=== PATIENT | male | born 1940 | race Caucasian/White ===

== ENCOUNTER 2017-02-25 09:24 | Inpatient (IN) ==
[2017-02-25] MEDS ORDERED: ONDANSETRON 4 MG/2 ML VIAL IV STA (09:42)
[2017-02-25] MEDS ORDERED: MORPHINE 2 MG/1 ML SYRINGE IV STA (09:42)
[2017-02-25] MEDS ORDERED: ASPIRIN 325 MG TABLET PO STA (09:42)
[2017-02-25] MEDS ORDERED: ONDANSETRON 4 MG/2 ML VIAL ONE (09:52)
[2017-02-25] MEDS ORDERED: ASPIRIN 325 MG TABLET ONE (09:52)
[2017-02-25] MEDS ORDERED: MORPHINE 2 MG/1 ML SYRINGE ONE (09:52)
[2017-02-25] MEDS: NITROGLYCERIN SL 0.4 MG TABLET SL PRN ×2 (10:07→18:35)
[2017-02-25 10:15] LABS: Basophils % 0.2 % (0.0-0.8); Eosinophils # 0.1 10*3/uL (0.0-0.87); Eosinophils % 1.2 % (0.00-10.9); Hematocrit 41.4 VOL% (42.0-52.0); Hemoglobin 14.5 GM/DL (14.0-18.0); Immature Granulocytes % 0.2 %; Immature Granulocytes Absolute 0.02 #; Lymphocytes # 2.7 10*3/uL (1.4-4.0); Lymphocytes % 25.1 % (21.2-54.2); Mean Corpuscular Hemoglobin 32 PG (27-34); Mean Corpuscular Volume 90.2 FL (87-102); Mean Platelet Volume 10.9 FL (9.6-12.0); Monocytes # 1.1 10*3/uL (0.11-0.8); Monocytes % 9.9 % (1.7-12.7); Neutrophils # 6.7 10*3/uL (1.4-7.4); Neutrophils % 63.4 % (38.7-73.9); Platelet Count 238 T/CUMM (130-400); Red Blood Count 4.59 MC/CUMM (3.8-5.5); Red Cell Distribution Width 13.1 % (9.3-17.3); White Blood Count 10.6 T/CUMM (4-12)
[2017-02-25] MEDS ORDERED: NITROGLYCERIN 2% OINT 1 INCH/GM PACK TOP STA (10:27)
[2017-02-25 10:33] LABS: Hypochromasia 1+; Platelet Estimate Adequate
[2017-02-25 10:35] LABS: Giant Platelets Few; Microcytosis Slight; Ovalocytes Slight
[2017-02-25 10:39] LABS: INR 0.9; Partial Thromboplastin Time 25.9 SECS (0-40)
[2017-02-25 11:49] LABS: Calcium 9.3 MG/DL (8.5-10.1); Potassium 4.7 MMOL/L (3.5-5.1)
[2017-02-25] MEDS ORDERED: MAGNESIUM SULF RIDER 2 GM in PREMIX 1 EACH IV PRN (12:20)
[2017-02-25] MEDS ORDERED: POTASSIUM CHLORIDE 20 MEQ TABLET PO PRN (12:20)
[2017-02-25] MEDS ORDERED: MORPHINE 2 MG/1 ML SYRINGE IV PRN (12:20)
[2017-02-25] MEDS ORDERED: ONDANSETRON 4 MG/2 ML VIAL IV PRN (12:20)
[2017-02-25] MEDS ORDERED: MAGNESIUM SULF RIDER 4 GM in PREMIX 1 EACH IV PRN (12:20)
[2017-02-25] MEDS ORDERED: NITROGLYCERIN SL 0.4 MG TABLET SL PRN (12:25)
[2017-02-25] MEDS ORDERED: diphenhydrAMINE CAP 25 MG CAPSULE PO PRN (15:56)
[2017-02-25] MEDS ORDERED: AMIODARONE INJ 450 MG in DEXTROSE 5% 241 ML IV SCH (15:56)
[2017-02-25] MEDS ORDERED: ENOXAPARIN 100 MG/ML SYRINGE SUBCUT STA (15:56)
[2017-02-25] MEDS ORDERED: LACTULOSE 20 GM/30 ML UDCUP PO PRN (15:56)
[2017-02-25] MEDS ORDERED: ENOXAPARIN 40 MG/0.4 ML SYRINGE SUBCUT SCH (16:00)
[2017-02-25] MEDS: DEXTROSE 5% NACL 0.45% 1,000 ML IV SCH (17:01)
[2017-02-25] MEDS: DILTIAZEM INJ 100 MG in SODIUM CHLORIDE 0.9% 100 ML IV SCH (20:41)
[2017-02-25] MEDS: PRAMIPEXOLE 0.25 MG TABLET PO SCH (20:43)
[2017-02-25] MEDS: DOCUSATE SODIUM 100 MG CAPSULE PO SCH (20:43)
[2017-02-25] MEDS: TICAGRELOR 90 MG TABLET PO SCH ×2 (20:44→22:58)
[2017-02-25] MEDS: MAGNESIUM CHLORIDE 64 MG TABLET PO SCH ×2 (20:44→23:00)
[2017-02-25] MEDS: clonazePAM 0.5 MG TABLET PO SCH (20:46)
[2017-02-25] MEDS: NITROGLYCERIN 2% OINT 1 INCH/GM PACK TOP SCH (22:59)
[2017-02-26] MEDS: AMIODARONE INJ 450 MG in DEXTROSE 5% 241 ML IV SCH ×2 (00:53→13:44)
[2017-02-26 04:58] LABS: Basophils % 0.3 % (0.0-0.8); Eosinophils # 0.2 10*3/uL (0.0-0.87); Eosinophils % 1.9 % (0.00-10.9); Hematocrit 38.6 VOL% (42.0-52.0); Hemoglobin 13.3 GM/DL (14.0-18.0); Immature Granulocytes % 0.3 %; Immature Granulocytes Absolute 0.03 #; Lymphocytes # 2.5 10*3/uL (1.4-4.0); Lymphocytes % 21.5 % (21.2-54.2); Mean Corpuscular HGB Conc 34.5 GM/DL (32-36); Mean Corpuscular Hemoglobin 31 PG (27-34); Mean Corpuscular Volume 90.8 FL (87-102); Mean Platelet Volume 10.8 FL (9.6-12.0); Monocytes % 8.4 % (1.7-12.7); Neutrophils # 7.8 10*3/uL (1.4-7.4); Neutrophils % 67.6 % (38.7-73.9); Platelet Count 214 T/CUMM (130-400); Red Blood Count 4.25 MC/CUMM (3.8-5.5); Red Cell Distribution Width 13.2 % (9.3-17.3); White Blood Count 11.5 T/CUMM (4-12)
[2017-02-26 05:42] LABS: Calcium 8.6 MG/DL (8.5-10.1); Magnesium 2.1 MG/DL (1.8-2.4); Osmolality,Calculated 275.7 MOS/KG (273-304); Potassium 4.3 MMOL/L (3.5-5.1); Risk Ratio 5.81; Thyroid Stimulating Hormone 4.79 uIU/ml (0.358-3.74); VLDL CHOLESTEROL 35.8 MG/DL
[2017-02-26] MEDS: DEXTROSE 5% NACL 0.45% 1,000 ML IV SCH ×3 (06:53→20:48)
[2017-02-26] MEDS: NITROGLYCERIN 2% OINT 1 INCH/GM PACK TOP SCH ×2 (06:56→09:36)
[2017-02-26] MEDS ORDERED: ATENOLOL 25 MG TABLET PO SCH (09:00)
[2017-02-26] MEDS ORDERED: ENOXAPARIN 40 MG/0.4 ML SYRINGE SUBCUT SCH (09:00)
[2017-02-26] MEDS ORDERED: ENOXAPARIN 100 MG/ML SYRINGE SUBCUT SCH (09:00)
[2017-02-26] MEDS ORDERED: NIACIN 50 MG PO SCH (09:00)
[2017-02-26] MEDS ORDERED: PANTOPRAZOLE 40 MG TABLET PO SCH (09:00)
[2017-02-26] MEDS ORDERED: NON-FORMULARY MEDICATION (Flaxseed Oil [Flaxseed Oil] 1,000 MG) PO SCH (09:00)
[2017-02-26] MEDS: MULTIVITAMIN (CENTRUM) TABLET PO SCH (09:31)
[2017-02-26] MEDS: DILTIAZEM CD 120 MG CAPSULE PO SCH (09:31)
[2017-02-26] MEDS: SELENIUM 200 MCG TABLET PO SCH (09:31)
[2017-02-26] MEDS: ACETAMINOPHEN 325 MG TABLET PO PRN ×3 (09:32→20:44)
[2017-02-26] MEDS: FUROSEMIDE 20 MG TABLET PO SCH (09:32)
[2017-02-26] MEDS: OMEGA 3 ACID ETHYL ESTERS 1 GM CAPSULE PO SCH (09:32)
[2017-02-26] MEDS: DOCUSATE SODIUM 100 MG CAPSULE PO SCH ×2 (09:33→20:45)
[2017-02-26] MEDS: FERROUS GLUCONATE 240 MG TABLET PO SCH (09:34)
[2017-02-26] MEDS: MAGNESIUM CHLORIDE 64 MG TABLET PO SCH ×3 (09:34→20:55)
[2017-02-26] MEDS: TICAGRELOR 90 MG TABLET PO SCH ×3 (09:34→20:55)
[2017-02-26] MEDS: DUTASTERIDE 0.5 MG CAPSULE PO SCH (09:34)
[2017-02-26] MEDS: clonazePAM 0.5 MG TABLET PO SCH ×2 (09:34→20:47)
[2017-02-26] MEDS: ASPIRIN EC 81 MG TABLET PO SCH (09:34)
[2017-02-26] MEDS: PANTOPRAZOLE 40 MG TABLET PO SCH (09:34)
[2017-02-26] MEDS: DILTIAZEM 30 MG TABLET PO SCH ×2 (17:32→20:47)
[2017-02-26] MEDS: PRAMIPEXOLE 0.25 MG TABLET PO SCH (20:45)
[2017-02-27] MEDS: APIXABAN 5 MG TABLET PO SCH ×3 (02:21→21:05)
[2017-02-27] MEDS: NITROGLYCERIN 2% OINT 1 INCH/GM PACK TOP SCH ×3 (02:21→21:06)
[2017-02-27] MEDS: MAGNESIUM CHLORIDE 64 MG TABLET PO SCH ×5 (02:22→21:06)
[2017-02-27 02:24] LABS: Basophils % 0.3 % (0.0-0.8); Eosinophils # 0.1 10*3/uL (0.0-0.87); Eosinophils % 1.2 % (0.00-10.9); Hematocrit 38.1 VOL% (42.0-52.0); Hemoglobin 13.2 GM/DL (14.0-18.0); Immature Granulocytes % 0.4 %; Immature Granulocytes Absolute 0.05 #; Lymphocytes # 2.5 10*3/uL (1.4-4.0); Lymphocytes % 21.5 % (21.2-54.2); Mean Corpuscular HGB Conc 34.6 GM/DL (32-36); Mean Corpuscular Hemoglobin 31 PG (27-34); Mean Corpuscular Volume 90.7 FL (87-102); Mean Platelet Volume 11.3 FL (9.6-12.0); Monocytes # 1.5 10*3/uL (0.11-0.8); Monocytes % 12.9 % (1.7-12.7); Neutrophils # 7.4 10*3/uL (1.4-7.4); Neutrophils % 63.7 % (38.7-73.9); Platelet Count 229 T/CUMM (130-400); Red Cell Distribution Width 13.5 % (9.3-17.3); White Blood Count 11.6 T/CUMM (4-12)
[2017-02-27] MEDS: DILTIAZEM INJ 100 MG in SODIUM CHLORIDE 0.9% 100 ML IV SCH (02:26)
[2017-02-27 02:55] LABS: Calcium 8.8 MG/DL (8.5-10.1); Magnesium 2.1 MG/DL (1.8-2.4); Osmolality,Calculated 271.8 MOS/KG (273-304)
[2017-02-27] MEDS: AMIODARONE INJ 450 MG in DEXTROSE 5% 241 ML IV SCH ×2 (04:30→20:43)
[2017-02-27] MEDS: DEXTROSE 5% NACL 0.45% 1,000 ML IV SCH ×2 (05:57→09:20)
[2017-02-27] MEDS: clonazePAM 0.5 MG TABLET PO SCH ×2 (08:36→20:43)
[2017-02-27] MEDS: ASPIRIN EC 81 MG TABLET PO SCH (08:37)
[2017-02-27] MEDS: TICAGRELOR 90 MG TABLET PO SCH ×2 (08:37→20:42)
[2017-02-27] MEDS: DUTASTERIDE 0.5 MG CAPSULE PO SCH (08:38)
[2017-02-27] MEDS: DOCUSATE SODIUM 100 MG CAPSULE PO SCH ×2 (08:38→20:42)
[2017-02-27] MEDS: SIMVASTATIN 20 MG TABLET PO SCH (08:38)
[2017-02-27] MEDS: FERROUS GLUCONATE 240 MG TABLET PO SCH (08:38)
[2017-02-27] MEDS: PANTOPRAZOLE 40 MG TABLET PO SCH (08:38)
[2017-02-27] MEDS: SELENIUM 200 MCG TABLET PO SCH (08:38)
[2017-02-27] MEDS: FUROSEMIDE 20 MG TABLET PO SCH (08:39)
[2017-02-27] MEDS: OMEGA 3 ACID ETHYL ESTERS 1 GM CAPSULE PO SCH (08:39)
[2017-02-27] MEDS: MULTIVITAMIN (CENTRUM) TABLET PO SCH (08:39)
[2017-02-27] MEDS: ACETAMINOPHEN 325 MG TABLET PO PRN ×2 (08:40→20:42)
[2017-02-27] MEDS: DILTIAZEM 30 MG TABLET PO SCH (08:40)
[2017-02-27] MEDS ORDERED: LISINOPRIL 10 MG TABLET PO SCH (09:00)
[2017-02-27] MEDS ORDERED: DILTIAZEM 60 MG TABLET PO SCH (09:09)
[2017-02-27] MEDS: DILTIAZEM CD 120 MG CAPSULE PO SCH ×2 (09:41→20:40)
[2017-02-27] MEDS: PRAMIPEXOLE 0.25 MG TABLET PO SCH (21:12)
[2017-02-28 04:36] LABS: Basophils % 0.3 % (0.0-0.8); Eosinophils # 0.3 10*3/uL (0.0-0.87); Eosinophils % 2.3 % (0.00-10.9); Hematocrit 38.3 VOL% (42.0-52.0); Hemoglobin 13.1 GM/DL (14.0-18.0); Immature Granulocytes % 0.3 %; Immature Granulocytes Absolute 0.04 #; Lymphocytes # 2.3 10*3/uL (1.4-4.0); Lymphocytes % 20.3 % (21.2-54.2); Mean Corpuscular HGB Conc 34.2 GM/DL (32-36); Mean Corpuscular Hemoglobin 31 PG (27-34); Mean Corpuscular Volume 90.8 FL (87-102); Monocytes # 1.4 10*3/uL (0.11-0.8); Monocytes % 11.7 % (1.7-12.7); Neutrophils # 7.5 10*3/uL (1.4-7.4); Neutrophils % 65.1 % (38.7-73.9); Platelet Count 231 T/CUMM (130-400); Red Blood Count 4.22 MC/CUMM (3.8-5.5); Red Cell Distribution Width 13.3 % (9.3-17.3); White Blood Count 11.5 T/CUMM (4-12)
[2017-02-28 05:01] LABS: Calcium 8.7 MG/DL (8.5-10.1); Magnesium 2.1 MG/DL (1.8-2.4); Osmolality,Calculated 274.7 MOS/KG (273-304)
[2017-02-28] MEDS ORDERED: MEPERIDINE 25 MG/1 ML VIAL ONE (11:40)
[2017-02-28] MEDS ORDERED: MIDAZOLAM 10 MG/2 ML VIAL ONE (11:41)
[2017-02-28] MEDS ORDERED: MIDAZOLAM 2 MG/2 ML VIAL IV ONE (12:23)
[2017-02-28] MEDS: SODIUM CHLORIDE 0.9% 1,000 ML IV SCH (12:36)
[2017-02-28] MEDS: DILTIAZEM CD 120 MG CAPSULE PO SCH ×2 (14:43→21:15)
[2017-02-28] MEDS: DOCUSATE SODIUM 100 MG CAPSULE PO SCH ×2 (14:44→21:14)
[2017-02-28] MEDS: MAGNESIUM CHLORIDE 64 MG TABLET PO SCH ×4 (14:44→21:17)
[2017-02-28] MEDS: DUTASTERIDE 0.5 MG CAPSULE PO SCH (14:44)
[2017-02-28] MEDS: MULTIVITAMIN (CENTRUM) TABLET PO SCH (14:44)
[2017-02-28] MEDS: clonazePAM 0.5 MG TABLET PO SCH ×2 (14:45→21:16)
[2017-02-28] MEDS: TICAGRELOR 90 MG TABLET PO SCH ×2 (14:45→21:16)
[2017-02-28] MEDS: OMEGA 3 ACID ETHYL ESTERS 1 GM CAPSULE PO SCH (14:45)
[2017-02-28] MEDS: FERROUS GLUCONATE 240 MG TABLET PO SCH (14:45)
[2017-02-28] MEDS: SELENIUM 200 MCG TABLET PO SCH (14:45)
[2017-02-28] MEDS: PANTOPRAZOLE 40 MG TABLET PO SCH (14:45)
[2017-02-28] MEDS: ASPIRIN EC 81 MG TABLET PO SCH (14:46)
[2017-02-28] MEDS: APIXABAN 5 MG TABLET PO SCH ×2 (14:46→21:16)
[2017-02-28] MEDS: FUROSEMIDE 20 MG TABLET PO SCH (14:46)
[2017-02-28] MEDS: NITROGLYCERIN 2% OINT 1 INCH/GM PACK TOP SCH ×2 (14:47→21:17)
[2017-02-28] MEDS ORDERED: METOPROLOL TARTRATE 5 MG/5 ML VIAL IV ONE ×2 (15:21→15:22)
[2017-02-28] MEDS ORDERED: AMIODARONE INJ 150 MG in DEXTROSE 5% 100 ML IV ONE (15:37)
[2017-02-28] MEDS: AMIODARONE INJ 450 MG in DEXTROSE 5% 241 ML IV SCH ×2 (15:56→21:11)
[2017-02-28] MEDS ORDERED: AMIODARONE INJ 450 MG in DEXTROSE 5% 241 ML IV SCH (16:00)
[2017-02-28] MEDS ORDERED: AMIODARONE 200 MG TABLET PO SCH (21:00)
[2017-02-28] MEDS: ASCORBIC ACID 500 MG TABLET PO SCH (21:14)
[2017-02-28] MEDS: PRAMIPEXOLE 0.25 MG TABLET PO SCH (21:16)
[2017-02-28] MEDS: ZALEPLON 5 MG CAPSULE PO PRN (21:21)
[2017-03-01] MEDS ORDERED: METOPROLOL TARTRATE 25 MG TABLET ONE (09:42)
[2017-03-01] MEDS ORDERED: DILTIAZEM CD 180 MG CAPSULE PO ONE (09:48)
[2017-03-01] MEDS ORDERED: diphenhydrAMINE CAP 25 MG CAPSULE PO ONE (10:30)
[2017-03-01] MEDS: TICAGRELOR 90 MG TABLET PO SCH ×2 (10:33→21:12)
[2017-03-01] MEDS: ASPIRIN EC 81 MG TABLET PO SCH (10:33)
[2017-03-01] MEDS: DUTASTERIDE 0.5 MG CAPSULE PO SCH (10:33)
[2017-03-01] MEDS: DOCUSATE SODIUM 100 MG CAPSULE PO SCH ×2 (10:34→21:12)
[2017-03-01] MEDS: MULTIVITAMIN (CENTRUM) TABLET PO SCH (10:34)
[2017-03-01] MEDS: clonazePAM 0.5 MG TABLET PO SCH ×2 (10:34→21:12)
[2017-03-01] MEDS: FERROUS GLUCONATE 240 MG TABLET PO SCH (10:34)
[2017-03-01] MEDS: APIXABAN 5 MG TABLET PO SCH ×2 (10:34→21:12)
[2017-03-01] MEDS: OMEGA 3 ACID ETHYL ESTERS 1 GM CAPSULE PO SCH (10:35)
[2017-03-01] MEDS: SELENIUM 200 MCG TABLET PO SCH (10:35)
[2017-03-01] MEDS: NITROGLYCERIN 2% OINT 1 INCH/GM PACK TOP SCH ×2 (10:35→21:12)
[2017-03-01] MEDS: MAGNESIUM CHLORIDE 64 MG TABLET PO SCH ×4 (10:35→21:13)
[2017-03-01] MEDS: PANTOPRAZOLE 40 MG TABLET PO SCH (10:35)
[2017-03-01] MEDS: FUROSEMIDE 20 MG TABLET PO SCH (10:35)
[2017-03-01] MEDS: SIMVASTATIN 20 MG TABLET PO SCH (10:36)
[2017-03-01] MEDS: DILTIAZEM CD 180 MG CAPSULE PO SCH ×2 (10:36→21:11)
[2017-03-01] MEDS: ASCORBIC ACID 500 MG TABLET PO SCH ×2 (10:36→21:12)
[2017-03-01] MEDS: METOPROLOL TARTRATE 25 MG TABLET PO SCH ×2 (10:37→21:12)
[2017-03-01] MEDS: DILTIAZEM CD 120 MG CAPSULE PO SCH (10:37)
[2017-03-01] MEDS: SODIUM CHLORIDE 0.9% 1,000 ML IV SCH (15:35)
[2017-03-01] MEDS: AMIODARONE INJ 450 MG in DEXTROSE 5% 241 ML IV SCH (16:13)
[2017-03-01] MEDS: cephALEXin 500 MG CAPSULE PO SCH ×2 (16:23→21:12)
[2017-03-01] MEDS: PRAMIPEXOLE 0.25 MG TABLET PO SCH (21:12)
[2017-03-02] MEDS: AMIODARONE INJ 450 MG in DEXTROSE 5% 241 ML IV SCH ×2 (05:52→19:00)
[2017-03-02] MEDS: VILAZODONE HCL 20 MG PO SCH ×3 (06:59→21:59)
[2017-03-02] MEDS: OMEGA 3 ACID ETHYL ESTERS 1 GM CAPSULE PO SCH (09:34)
[2017-03-02] MEDS: DUTASTERIDE 0.5 MG CAPSULE PO SCH (09:34)
[2017-03-02] MEDS: MULTIVITAMIN (CENTRUM) TABLET PO SCH (09:35)
[2017-03-02] MEDS: ASCORBIC ACID 500 MG TABLET PO SCH ×2 (09:35→21:48)
[2017-03-02] MEDS: SELENIUM 200 MCG TABLET PO SCH (09:35)
[2017-03-02] MEDS: MAGNESIUM CHLORIDE 64 MG TABLET PO SCH ×4 (09:35→22:00)
[2017-03-02] MEDS: DOCUSATE SODIUM 100 MG CAPSULE PO SCH ×2 (09:36→21:48)
[2017-03-02] MEDS: FERROUS GLUCONATE 240 MG TABLET PO SCH (09:36)
[2017-03-02] MEDS: clonazePAM 0.5 MG TABLET PO SCH ×2 (09:36→21:47)
[2017-03-02] MEDS: FUROSEMIDE 20 MG TABLET PO SCH (09:36)
[2017-03-02] MEDS: cephALEXin 500 MG CAPSULE PO SCH ×2 (09:36→21:46)
[2017-03-02] MEDS: METOPROLOL TARTRATE 25 MG TABLET PO SCH ×2 (09:37→21:48)
[2017-03-02] MEDS: ASPIRIN EC 81 MG TABLET PO SCH (09:37)
[2017-03-02] MEDS: DILTIAZEM CD 180 MG CAPSULE PO SCH ×2 (09:37→21:47)
[2017-03-02] MEDS: TICAGRELOR 90 MG TABLET PO SCH ×2 (09:37→21:48)
[2017-03-02] MEDS: APIXABAN 5 MG TABLET PO SCH ×2 (09:38→21:48)
[2017-03-02] MEDS: PANTOPRAZOLE 40 MG TABLET PO SCH (09:40)
[2017-03-02] MEDS: NITROGLYCERIN 2% OINT 1 INCH/GM PACK TOP SCH ×2 (09:41→22:00)
[2017-03-02] MEDS: SODIUM CHLORIDE 0.9% 1,000 ML IV SCH (13:36)
[2017-03-02] MEDS: PRAMIPEXOLE 0.25 MG TABLET PO SCH (21:47)
[2017-03-02] MEDS: ACETAMINOPHEN 325 MG TABLET PO PRN (21:48)
[2017-03-02] MEDS: ZALEPLON 5 MG CAPSULE PO PRN (21:48)
[2017-03-03] MEDS: AMIODARONE INJ 450 MG in DEXTROSE 5% 241 ML IV SCH (00:27)
[2017-03-03] MEDS: DUTASTERIDE 0.5 MG CAPSULE PO SCH (09:37)
[2017-03-03] MEDS: DILTIAZEM CD 180 MG CAPSULE PO SCH (09:37)
[2017-03-03] MEDS: MULTIVITAMIN (CENTRUM) TABLET PO SCH (09:37)
[2017-03-03] MEDS: SIMVASTATIN 20 MG TABLET PO SCH (09:37)
[2017-03-03] MEDS: TICAGRELOR 90 MG TABLET PO SCH (09:38)
[2017-03-03] MEDS: PANTOPRAZOLE 40 MG TABLET PO SCH (09:38)
[2017-03-03] MEDS: DOCUSATE SODIUM 100 MG CAPSULE PO SCH (09:38)
[2017-03-03] MEDS: clonazePAM 0.5 MG TABLET PO SCH (09:38)
[2017-03-03] MEDS: SELENIUM 200 MCG TABLET PO SCH (09:38)
[2017-03-03] MEDS: FUROSEMIDE 20 MG TABLET PO SCH (09:38)
[2017-03-03] MEDS: ASPIRIN EC 81 MG TABLET PO SCH (09:38)
[2017-03-03] MEDS: METOPROLOL TARTRATE 25 MG TABLET PO SCH (09:38)
[2017-03-03] MEDS: OMEGA 3 ACID ETHYL ESTERS 1 GM CAPSULE PO SCH (09:38)
[2017-03-03] MEDS: MAGNESIUM CHLORIDE 64 MG TABLET PO SCH ×2 (09:38→09:39)
[2017-03-03] MEDS: APIXABAN 5 MG TABLET PO SCH (09:39)
[2017-03-03] MEDS: NITROGLYCERIN 2% OINT 1 INCH/GM PACK TOP SCH (09:39)
[2017-03-03] MEDS: FERROUS GLUCONATE 240 MG TABLET PO SCH (09:41)
[2017-03-03] MEDS: cephALEXin 500 MG CAPSULE PO SCH (09:41)
[2017-03-03] MEDS: ASCORBIC ACID 500 MG TABLET PO SCH (09:42)
[2017-03-03 11:59] VITALS: BP 127/69
== END 2017-03-03 12:33 | disposition home or self-care (01) | DRG 310 ==
LOC: N.ED 09:24 → N.EDINP 12:20 → N.TELES 14:20
PROVIDERS: ADMIT Internal Medicine Cardiovascular Disease; ATTEND Internal Medicine Cardiovascular Disease

== ENCOUNTER 2017-03-30 05:56 | Observation (INO) ==
[2017-03-30] MEDS ORDERED: ASPIRIN 325 MG TABLET PO STA (06:29)
[2017-03-30] MEDS ORDERED: ASPIRIN 325 MG TABLET ONE (06:50)
[2017-03-30 06:59] LABS: Basophils # 0.1 10*3/uL (0.0-0.2); Basophils % 0.4 % (0.0-0.8); Eosinophils # 0.3 10*3/uL (0.0-0.87); Eosinophils % 1.9 % (0.00-10.9); Hematocrit 40.2 VOL% (42.0-52.0); Hemoglobin 13.7 GM/DL (14.0-18.0); Immature Granulocytes % 0.4 %; Immature Granulocytes Absolute 0.05 #; Lymphocytes # 2.2 10*3/uL (1.4-4.0); Lymphocytes % 16.9 % (21.2-54.2); Mean Corpuscular HGB Conc 34.1 GM/DL (32-36); Mean Corpuscular Hemoglobin 31 PG (27-34); Mean Corpuscular Volume 90.7 FL (87-102); Mean Platelet Volume 10.9 FL (9.6-12.0); Monocytes # 1.2 10*3/uL (0.11-0.8); Monocytes % 9.6 % (1.7-12.7); Neutrophils # 9.2 10*3/uL (1.4-7.4); Neutrophils % 70.8 % (38.7-73.9); Platelet Count 198 T/CUMM (130-400); Red Blood Count 4.43 MC/CUMM (3.8-5.5); Red Cell Distribution Width 13.2 % (9.3-17.3); White Blood Count 12.9 T/CUMM (4-12)
[2017-03-30 07:05] LABS: PT Patient Result 10.5 SECS
[2017-03-30 07:18] LABS: Albumin 3.5 G/DL (3.4-5.0); Bilirubin,Total 0.5 MG/DL (0.2-1.0); Calcium 9.1 MG/DL (8.5-10.1); Magnesium 2.2 MG/DL (1.8-2.4); Osmolality,Calculated 283.3 MOS/KG (273-304); Potassium 3.7 MMOL/L (3.5-5.1); Total Protein 6.6 G/DL (6.4-8.3)
[2017-03-30] MEDS ORDERED: diphenhydrAMINE CAP 25 MG CAPSULE PO PRN (11:51)
[2017-03-30] MEDS ORDERED: ONDANSETRON 4 MG/2 ML VIAL IV PRN (11:51)
[2017-03-30] MEDS ORDERED: ZALEPLON 5 MG CAPSULE PO PRN (11:51)
[2017-03-30] MEDS ORDERED: ENOXAPARIN 40 MG/0.4 ML SYRINGE SUBCUT SCH (12:00)
[2017-03-30] MEDS ORDERED: ENOXAPARIN 40 MG/0.4 ML SYRINGE ONE (12:28)
[2017-03-30] MEDS: SODIUM CHLORIDE 0.45% 1,000 ML IV SCH (13:20)
[2017-03-30] MEDS ORDERED: DUTASTERIDE 0.5 MG CAPSULE PO SCH (22:30)
[2017-03-30] MEDS ORDERED: ZALEPLON 5 MG CAPSULE PO SCH (23:00)
[2017-03-30] MEDS ORDERED: PRAMIPEXOLE 0.25 MG TABLET PO SCH (23:00)
[2017-03-30] MEDS: clonazePAM 0.5 MG TABLET PO SCH (23:10)
[2017-03-30] MEDS: TICAGRELOR 90 MG TABLET PO SCH (23:11)
[2017-03-30] MEDS: AMIODARONE 200 MG TABLET PO SCH (23:11)
[2017-03-30] MEDS: DILTIAZEM CD 180 MG CAPSULE PO SCH (23:11)
[2017-03-30] MEDS: METOPROLOL TARTRATE 25 MG TABLET PO SCH (23:12)
[2017-03-30] MEDS: APIXABAN 5 MG TABLET PO SCH (23:12)
[2017-03-31] MEDS: SODIUM CHLORIDE 0.45% 1,000 ML IV SCH (02:42)
[2017-03-31] MEDS ORDERED: NITROGLYCERIN SL 0.4 MG TABLET SL PRN (04:43)
[2017-03-31] MEDS ORDERED: LEVOTHYROXINE 50 MCG TABLET PO SCH (06:30)
[2017-03-31 07:01] LABS: Basophils % 0.3 % (0.0-0.8); Eosinophils # 0.3 10*3/uL (0.0-0.87); Eosinophils % 2.9 % (0.00-10.9); Hematocrit 38.5 VOL% (42.0-52.0); Hemoglobin 12.9 GM/DL (14.0-18.0); Immature Granulocytes % 0.3 %; Immature Granulocytes Absolute 0.03 #; Lymphocytes # 2.2 10*3/uL (1.4-4.0); Mean Corpuscular HGB Conc 33.5 GM/DL (32-36); Mean Corpuscular Hemoglobin 31 PG (27-34); Mean Corpuscular Volume 91.4 FL (87-102); Mean Platelet Volume 11.3 FL (9.6-12.0); Monocytes # 0.9 10*3/uL (0.11-0.8); Neutrophils # 5.7 10*3/uL (1.4-7.4); Neutrophils % 62.5 % (38.7-73.9); Platelet Count 196 T/CUMM (130-400); Red Blood Count 4.21 MC/CUMM (3.8-5.5); Red Cell Distribution Width 13.4 % (9.3-17.3); White Blood Count 9.1 T/CUMM (4-12)
[2017-03-31 07:32] LABS: Calcium 8.9 MG/DL (8.5-10.1); Osmolality,Calculated 278.4 MOS/KG (273-304); Potassium 4.2 MMOL/L (3.5-5.1)
[2017-03-31] MEDS: DILTIAZEM CD 180 MG CAPSULE PO SCH (08:45)
[2017-03-31] MEDS: clonazePAM 0.5 MG TABLET PO SCH (08:46)
[2017-03-31] MEDS: AMIODARONE 200 MG TABLET PO SCH (08:46)
[2017-03-31] MEDS: METOPROLOL TARTRATE 25 MG TABLET PO SCH (08:46)
[2017-03-31] MEDS: TICAGRELOR 90 MG TABLET PO SCH (08:46)
[2017-03-31] MEDS: APIXABAN 5 MG TABLET PO SCH (08:47)
[2017-03-31] MEDS ORDERED: FUROSEMIDE 40 MG TABLET PO SCH (09:00)
[2017-03-31] MEDS ORDERED: TAMSULOSIN 0.4 MG CAPSULE PO SCH (09:00)
[2017-03-31] MEDS ORDERED: ASCORBIC ACID 500 MG TABLET PO SCH (09:00)
[2017-03-31] MEDS ORDERED: IRON (CARBONYL) 45 MG TABLET PO SCH (09:00)
[2017-03-31] MEDS ORDERED: PANTOPRAZOLE 40 MG TABLET PO SCH (09:00)
[2017-03-31] MEDS ORDERED: predniSONE 5 MG TABLET PO SCH (09:00)
[2017-03-31] MEDS ORDERED: MULTIVITAMIN (CENTRUM) TABLET PO SCH (09:00)
[2017-03-31] MEDS ORDERED: FAMOTIDINE 20 MG TABLET PO SCH (09:00)
[2017-03-31] MEDS ORDERED: SELENIUM 200 MCG TABLET PO SCH (09:00)
[2017-03-31] MEDS ORDERED: MAGNESIUM CHLORIDE 64 MG TABLET PO SCH (09:00)
[2017-03-31] MEDS ORDERED: FERROUS GLUCONATE 240 MG TABLET PO SCH (11:30)
[2017-03-31 11:50] VITALS: BP 124/82
[2017-03-31] MEDS ORDERED: OMEGA 3 ACID ETHYL ESTERS 1 GM CAPSULE PO SCH (21:00)
[2017-03-31] MEDS ORDERED: DOCUSATE SODIUM 100 MG CAPSULE PO SCH (21:00)
== END 2017-03-31 13:43 | disposition home or self-care (01) ==
LOC: N.EDINP 05:56 → N.ED 05:56 → N.TELES 15:33
PROVIDERS: ADMIT Internal Medicine Cardiovascular Disease; ATTEND Internal Medicine Cardiovascular Disease

== ENCOUNTER 2017-05-25 10:19 | Inpatient (IN) ==
[2017-05-25 14:06] LABS: Basophils % 0.4 % (0.0-0.8); Eosinophils # 0.2 10*3/uL (0.0-0.87); Hematocrit 39.7 VOL% (42.0-52.0); Hemoglobin 13.2 GM/DL (14.0-18.0); Immature Granulocytes % 0.4 %; Immature Granulocytes Absolute 0.04 #; Lymphocytes # 2.7 10*3/uL (1.4-4.0); Lymphocytes % 27.2 % (21.2-54.2); Mean Corpuscular HGB Conc 33.2 GM/DL (32-36); Mean Corpuscular Hemoglobin 31 PG (27-34); Mean Corpuscular Volume 93.4 FL (87-102); Mean Platelet Volume 10.9 FL (9.6-12.0); Monocytes # 0.9 10*3/uL (0.11-0.8); Monocytes % 9.3 % (1.7-12.7); Neutrophils % 60.7 % (38.7-73.9); Platelet Count 220 T/CUMM (130-400); Red Blood Count 4.25 MC/CUMM (3.8-5.5); Red Cell Distribution Width 13.3 % (9.3-17.3); White Blood Count 9.9 T/CUMM (4-12)
[2017-05-25 14:23] LABS: Albumin 3.5 G/DL (3.4-5.0); Bilirubin,Total 0.6 MG/DL (0.2-1.0); Calcium 9.3 MG/DL (8.5-10.1); Osmolality,Calculated 277.5 MOS/KG (273-304); Potassium 4.2 MMOL/L (3.5-5.1); Total Protein 6.8 G/DL (6.4-8.3)
[2017-05-25 14:34] LABS: PT Patient Result 10.1 SECS
[2017-05-25] MEDS ORDERED: ACETAMINOPHEN 325 MG TABLET PO PRN (16:10)
[2017-05-25] MEDS ORDERED: ONDANSETRON 4 MG/2 ML VIAL IV PRN (16:10)
[2017-05-25] MEDS ORDERED: DOCUSATE SODIUM 100 MG CAPSULE PO PRN (16:10)
[2017-05-25] MEDS ORDERED: LACTULOSE 20 GM/30 ML UDCUP PO PRN (16:10)
[2017-05-25] MEDS ORDERED: PANTOPRAZOLE 40 MG TABLET PO SCH ×3 (16:30→21:00)
[2017-05-25] MEDS ORDERED: NITROGLYCERIN SL 0.4 MG TABLET SL PRN (16:52)
[2017-05-25] MEDS: LEVOFLOXACIN 750 MG TABLET PO SCH (18:12)
[2017-05-25] MEDS ORDERED: DOCUSATE SODIUM 100 MG CAPSULE PO SCH ×2 (19:00→21:00)
[2017-05-25] MEDS ORDERED: DUTASTERIDE 0.5 MG CAPSULE PO SCH (19:00)
[2017-05-25] MEDS ORDERED: OMEGA 3 ACID ETHYL ESTERS 1 GM CAPSULE PO SCH (21:00)
[2017-05-25] MEDS ORDERED: PRAMIPEXOLE 0.25 MG TABLET PO SCH (21:00)
[2017-05-25] MEDS ORDERED: ZALEPLON 5 MG CAPSULE PO SCH (21:00)
[2017-05-25] MEDS: SELENIUM 200 MCG TABLET PO SCH (21:42)
[2017-05-25] MEDS: DILTIAZEM CD 180 MG CAPSULE PO SCH (21:43)
[2017-05-25] MEDS: MAGNESIUM CHLORIDE 64 MG TABLET PO SCH (21:43)
[2017-05-25] MEDS: AMIODARONE 200 MG TABLET PO SCH (21:44)
[2017-05-25] MEDS: clonazePAM 0.5 MG TABLET PO SCH (21:44)
[2017-05-25] MEDS: metroNIDAZOLE 500 MG TABLET PO SCH (21:44)
[2017-05-25] MEDS: METOPROLOL TARTRATE 25 MG TABLET PO SCH (21:44)
[2017-05-25] MEDS: TICAGRELOR 90 MG TABLET PO SCH (21:46)
[2017-05-26] MEDS: LEVOTHYROXINE 50 MCG TABLET PO SCH ×2 (06:07→09:21)
[2017-05-26] MEDS: metroNIDAZOLE 500 MG TABLET PO SCH ×2 (06:07→14:29)
[2017-05-26 07:07] LABS: Basophils % 0.3 % (0.0-0.8); Eosinophils # 0.2 10*3/uL (0.0-0.87); Eosinophils % 2.3 % (0.00-10.9); Hematocrit 40.9 VOL% (42.0-52.0); Hemoglobin 13.9 GM/DL (14.0-18.0); Immature Granulocytes % 0.3 %; Immature Granulocytes Absolute 0.03 #; Lymphocytes # 2.6 10*3/uL (1.4-4.0); Lymphocytes % 26.6 % (21.2-54.2); Mean Corpuscular Hemoglobin 31 PG (27-34); Mean Corpuscular Volume 91.1 FL (87-102); Mean Platelet Volume 11.3 FL (9.6-12.0); Monocytes % 10.3 % (1.7-12.7); Neutrophils # 5.8 10*3/uL (1.4-7.4); Neutrophils % 60.2 % (38.7-73.9); Platelet Count 256 T/CUMM (130-400); Red Blood Count 4.49 MC/CUMM (3.8-5.5); Red Cell Distribution Width 13.3 % (9.3-17.3); White Blood Count 9.6 T/CUMM (4-12)
[2017-05-26] MEDS ORDERED: FAMOTIDINE 20 MG TABLET PO SCH (09:00)
[2017-05-26] MEDS ORDERED: MULTIVITAMIN (CENTRUM) TABLET PO SCH (09:00)
[2017-05-26] MEDS ORDERED: FERROUS GLUCONATE 240 MG TABLET PO SCH (09:00)
[2017-05-26] MEDS ORDERED: ASCORBIC ACID 500 MG TABLET PO SCH (09:00)
[2017-05-26] MEDS ORDERED: Flaxseed Oil [Flaxseed Oil] 1,000 MG PO SCH (09:00)
[2017-05-26] MEDS ORDERED: FUROSEMIDE 40 MG TABLET PO SCH (09:00)
[2017-05-26] MEDS ORDERED: ASPIRIN EC 81 MG TABLET PO SCH (09:00)
[2017-05-26] MEDS: SELENIUM 200 MCG TABLET PO SCH (09:19)
[2017-05-26] MEDS: TICAGRELOR 90 MG TABLET PO SCH (09:19)
[2017-05-26] MEDS: DILTIAZEM CD 180 MG CAPSULE PO SCH (09:20)
[2017-05-26] MEDS: METOPROLOL TARTRATE 25 MG TABLET PO SCH (09:20)
[2017-05-26] MEDS: MAGNESIUM CHLORIDE 64 MG TABLET PO SCH (09:20)
[2017-05-26] MEDS: AMIODARONE 200 MG TABLET PO SCH (09:20)
[2017-05-26] MEDS: clonazePAM 0.5 MG TABLET PO SCH (09:21)
[2017-05-26] MEDS: LEVOFLOXACIN 750 MG TABLET PO SCH (09:21)
[2017-05-26] MEDS ORDERED: PROPOFOL 200 MG/20 ML VIAL IV ONE (11:45)
[2017-05-26] MEDS ORDERED: LIDOCAINE 2% 5 ML VIAL ONE (11:45)
[2017-05-26 16:57] VITALS: BP 132/63
[2017-05-27] MEDS ORDERED: TAMSULOSIN 0.4 MG CAPSULE PO SCH (09:00)
== END 2017-05-26 17:47 | disposition home or self-care (01) | DRG 379 ==
LOC: N.ED 10:19 → N.EDINP 14:53 → N.5E 15:59
PROVIDERS: ADMIT Internal Medicine; ATTEND Internal Medicine

== ENCOUNTER 2018-02-04 11:45 | Inpatient (IN) ==
[2018-02-04 13:04] LABS: Basophils % 0.3 % (0.0-0.8); Eosinophils # 0.1 10*3/uL (0.0-0.87); Eosinophils % 0.8 % (0.00-10.9); Hematocrit 44.1 VOL% (42.0-52.0); Hemoglobin 14.5 GM/DL (14.0-18.0); Immature Granulocytes % 0.4 %; Immature Granulocytes Absolute 0.06 #; Lymphocytes # 2.1 10*3/uL (1.4-4.0); Lymphocytes % 14.8 % (21.2-54.2); Mean Corpuscular HGB Conc 32.9 GM/DL (32-36); Mean Corpuscular Hemoglobin 31 PG (27-34); Mean Corpuscular Volume 93.4 FL (87-102); Mean Platelet Volume 10.8 FL (9.6-12.0); Monocytes # 1.2 10*3/uL (0.11-0.8); Monocytes % 8.5 % (1.7-12.7); Neutrophils # 10.6 10*3/uL (1.4-7.4); Neutrophils % 75.2 % (38.7-73.9); Platelet Count 250 T/CUMM (130-400); Red Blood Count 4.72 MC/CUMM (3.8-5.5); Red Cell Distribution Width 13.3 % (9.3-17.3); White Blood Count 14.1 T/CUMM (4-12)
[2018-02-04 13:24] LABS: Barbiturates Screen,Urine Negative (Negative); Benzodiazepines Screen,Urine Negative (Negative); Cannabinoid Screen,Urine Negative (Negative); Opiate Screen,Urine Negative (Negative); Phencyclidine Screen,Urine Negative (Negative)
[2018-02-04 13:26] LABS: Apearance,Urine CLEAR (Clear); Bilirubin,Urine Negative (Negative); Blood, Urine Small mg/dL (Negative); Glucose,Urine (UA) Negative (Negative); Hyaline Casts,Urine 11 /LPF (0-3); Ketones,Urine Negative (Negative); Mucus,Urine Occasional /LPF (Occasional); Nitrite,Urine Negative (Negative); Protein,Urine Negative; RBC,Urine 2 /HPF (0-4); Urine Color Straw (Yellow); Urine Specific Gravity 1.006 (1.001-1.035); Urine Urobilinogen < 2.0 EU/DL (0.2-1.0); WBC,Urine <1 /HPF (0-6)
[2018-02-04 13:42] LABS: Troponin I < 0.015 NG/ML (0.00-0.045)
[2018-02-04] MEDS ORDERED: MORPHINE 4 MG/1 ML VIAL ONE (13:58)
[2018-02-04 14:01] LABS: Albumin 3.6 G/DL (3.4-5.0); Bilirubin,Total 0.4 MG/DL (0.2-1.0); Calcium 9.2 MG/DL (8.5-10.1); Osmolality,Calculated 276.7 MOS/KG (273-304); Potassium 4.3 MMOL/L (3.5-5.1); Total Protein 7.6 G/DL (6.4-8.3)
[2018-02-04] MEDS ORDERED: MORPHINE 4 MG/1 ML VIAL IV STA (14:03)
[2018-02-04 14:57] LABS: Free T4 (Free Thyroxine) 1.05 NG/DL (0.76-1.46); Thyroid Stimulating Hormone 4.33 uIU/ml (0.358-3.74)
[2018-02-04] MEDS ORDERED: SODIUM CHLORIDE 0.9% 1,000 ML IV STA (14:59)
[2018-02-04] MEDS ORDERED: ONDANSETRON 4 MG/2 ML VIAL IV PRN (15:42)
[2018-02-04] MEDS ORDERED: NITROGLYCERIN SL 0.4 MG TABLET SL PRN (15:46)
[2018-02-04] MEDS ORDERED: ALUMINUM/MAGNES/SIMETH MAX STR 30 ML UDCUP PO PRN (15:59)
[2018-02-04] MEDS ORDERED: MAGNESIUM HYDROXIDE SUSP 30 ML UDCUP PO PRN (15:59)
[2018-02-04] MEDS: SODIUM CHLORIDE 0.9% 1,000 ML IV SCH (17:34)
[2018-02-04] MEDS: ENOXAPARIN 40 MG/0.4 ML SYRINGE SUBCUT SCH (17:48)
[2018-02-04] MEDS: clonazePAM 0.5 MG TABLET PO SCH (20:47)
[2018-02-04] MEDS: MAGNESIUM CHLORIDE 64 MG TABLET PO SCH (20:48)
[2018-02-04] MEDS: CLOPIDOGREL 75 MG TABLET PO SCH (20:48)
[2018-02-04] MEDS: METOPROLOL TARTRATE 25 MG TABLET PO SCH (20:48)
[2018-02-04] MEDS: AMIODARONE 200 MG TABLET PO SCH (20:49)
[2018-02-04] MEDS: PRAMIPEXOLE 0.25 MG TABLET PO SCH (20:49)
[2018-02-04] MEDS: DILTIAZEM CD 180 MG CAPSULE PO SCH (20:49)
[2018-02-04] MEDS: DOCUSATE SODIUM 100 MG CAPSULE PO SCH (20:49)
[2018-02-04] MEDS: ZOLPIDEM 5 MG TABLET PO SCH (20:49)
[2018-02-04] MEDS: Vilazodone Hcl [Viibryd] 20 MG PO SCH (20:50)
[2018-02-04] MEDS: DUTASTERIDE 0.5 MG CAPSULE PO SCH (20:51)
[2018-02-05 01:26] LABS: Basophils % 0.4 % (0.0-0.8); Eosinophils # 0.2 10*3/uL (0.0-0.87); Eosinophils % 1.8 % (0.00-10.9); Immature Granulocytes % 0.4 %; Immature Granulocytes Absolute 0.04 #; Lymphocytes # 2.7 10*3/uL (1.4-4.0); Lymphocytes % 24.3 % (21.2-54.2); Mean Corpuscular HGB Conc 32.5 GM/DL (32-36); Mean Corpuscular Hemoglobin 31 PG (27-34); Mean Corpuscular Volume 94.3 FL (87-102); Mean Platelet Volume 10.7 FL (9.6-12.0); Monocytes # 0.9 10*3/uL (0.11-0.8); Monocytes % 8.2 % (1.7-12.7); Neutrophils # 7.3 10*3/uL (1.4-7.4); Neutrophils % 64.9 % (38.7-73.9); Platelet Count 214 T/CUMM (130-400); Red Blood Count 4.24 MC/CUMM (3.8-5.5); Red Cell Distribution Width 13.4 % (9.3-17.3); White Blood Count 11.2 T/CUMM (4-12)
[2018-02-05 01:54] LABS: Calcium 8.5 MG/DL (8.5-10.1); Osmolality,Calculated 281.4 MOS/KG (273-304); Potassium 4.1 MMOL/L (3.5-5.1)
[2018-02-05] MEDS: SODIUM CHLORIDE 0.9% 1,000 ML IV SCH ×2 (06:01→19:36)
[2018-02-05] MEDS: LEVOTHYROXINE 75 MCG TABLET PO SCH (06:02)
[2018-02-05] MEDS ORDERED: FUROSEMIDE 40 MG TABLET PO SCH (09:00)
[2018-02-05] MEDS: clonazePAM 0.5 MG TABLET PO SCH ×2 (10:24→21:19)
[2018-02-05] MEDS: DILTIAZEM CD 180 MG CAPSULE PO SCH ×2 (10:24→21:19)
[2018-02-05] MEDS: ASPIRIN EC 81 MG TABLET PO SCH (10:25)
[2018-02-05] MEDS: MAGNESIUM CHLORIDE 64 MG TABLET PO SCH ×2 (10:25→21:18)
[2018-02-05] MEDS: PANTOPRAZOLE 40 MG TABLET PO SCH (10:25)
[2018-02-05] MEDS: METOPROLOL TARTRATE 25 MG TABLET PO SCH ×2 (10:25→21:19)
[2018-02-05] MEDS: SIMVASTATIN 10 MG TABLET PO SCH (10:26)
[2018-02-05] MEDS: ACETAMINOPHEN 325 MG TABLET PO PRN ×2 (12:08→21:19)
[2018-02-05] MEDS: ENOXAPARIN 40 MG/0.4 ML SYRINGE SUBCUT SCH (17:37)
[2018-02-05] MEDS: ZOLPIDEM 5 MG TABLET PO SCH (21:18)
[2018-02-05] MEDS: CLOPIDOGREL 75 MG TABLET PO SCH (21:18)
[2018-02-05] MEDS: DUTASTERIDE 0.5 MG CAPSULE PO SCH (21:19)
[2018-02-05] MEDS: AMIODARONE 200 MG TABLET PO SCH (21:19)
[2018-02-05] MEDS: PRAMIPEXOLE 0.25 MG TABLET PO SCH (21:19)
[2018-02-05] MEDS: DOCUSATE SODIUM 100 MG CAPSULE PO SCH (21:20)
[2018-02-05] MEDS: Vilazodone Hcl [Viibryd] 20 MG PO SCH (21:21)
[2018-02-06] MEDS ORDERED: ACETAMINOPHEN 325 MG TABLET PO ONE
[2018-02-06] MEDS ORDERED: ACETAMINOPHEN 325 MG TABLET PO PRN
[2018-02-06 03:55] LABS: Basophils % 0.4 % (0.0-0.8); Eosinophils # 0.2 10*3/uL (0.0-0.87); Eosinophils % 1.9 % (0.00-10.9); Hematocrit 39.5 VOL% (42.0-52.0); Hemoglobin 12.8 GM/DL (14.0-18.0); Immature Granulocytes % 0.3 %; Immature Granulocytes Absolute 0.03 #; Lymphocytes # 2.4 10*3/uL (1.4-4.0); Lymphocytes % 22.7 % (21.2-54.2); Mean Corpuscular HGB Conc 32.4 GM/DL (32-36); Mean Corpuscular Hemoglobin 30 PG (27-34); Mean Corpuscular Volume 93.4 FL (87-102); Mean Platelet Volume 11.3 FL (9.6-12.0); Monocytes # 1.1 10*3/uL (0.11-0.8); Monocytes % 10.6 % (1.7-12.7); Neutrophils # 6.8 10*3/uL (1.4-7.4); Neutrophils % 64.1 % (38.7-73.9); Platelet Count 210 T/CUMM (130-400); Red Blood Count 4.23 MC/CUMM (3.8-5.5); Red Cell Distribution Width 13.3 % (9.3-17.3); White Blood Count 10.5 T/CUMM (4-12)
[2018-02-06 04:12] LABS: Calcium 8.7 MG/DL (8.5-10.1); Osmolality,Calculated 274.8 MOS/KG (273-304)
[2018-02-06] MEDS: LEVOTHYROXINE 75 MCG TABLET PO SCH (06:05)
[2018-02-06] MEDS: SODIUM CHLORIDE 0.9% 1,000 ML IV SCH (08:55)
[2018-02-06] MEDS: ASPIRIN EC 81 MG TABLET PO SCH (08:56)
[2018-02-06] MEDS: DILTIAZEM CD 180 MG CAPSULE PO SCH (08:56)
[2018-02-06] MEDS: clonazePAM 0.5 MG TABLET PO SCH (08:57)
[2018-02-06] MEDS: PANTOPRAZOLE 40 MG TABLET PO SCH (08:58)
[2018-02-06] MEDS: METOPROLOL TARTRATE 25 MG TABLET PO SCH (08:58)
[2018-02-06] MEDS: MAGNESIUM CHLORIDE 64 MG TABLET PO SCH (08:58)
[2018-02-06] MEDS: SIMVASTATIN 10 MG TABLET PO SCH (08:59)
[2018-02-06] MEDS ORDERED: METOPROLOL TARTRATE 25 MG TABLET PO SCH (10:26)
[2018-02-06 11:55] VITALS: BP 133/63
== END 2018-02-06 13:20 | disposition home or self-care (01) | DRG 312 ==
LOC: EDBD → EDUNIT# → N.ED 11:45 → N.EDINP 15:42 → SUATTDRO 15:42 → N.EDINP 16:44 → N.TELES 16:51
PROVIDERS: ADMIT Internal Medicine; ATTEND Internal Medicine

== ENCOUNTER 2018-02-13 05:32 | Inpatient (IN) ==
[2018-02-13 06:22] LABS: Basophils % 0.3 % (0.0-0.8); Eosinophils # 0.3 10*3/uL (0.0-0.87); Eosinophils % 2.4 % (0.00-10.9); Hematocrit 41.7 VOL% (42.0-52.0); Hemoglobin 13.7 GM/DL (14.0-18.0); Immature Granulocytes % 0.4 %; Immature Granulocytes Absolute 0.05 #; Lymphocytes # 2.7 10*3/uL (1.4-4.0); Mean Corpuscular HGB Conc 32.9 GM/DL (32-36); Mean Corpuscular Hemoglobin 31 PG (27-34); Mean Corpuscular Volume 93.7 FL (87-102); Mean Platelet Volume 11.1 FL (9.6-12.0); Monocytes # 1.3 10*3/uL (0.11-0.8); Monocytes % 11.3 % (1.7-12.7); Neutrophils # 7.5 10*3/uL (1.4-7.4); Neutrophils % 62.6 % (38.7-73.9); Platelet Count 225 T/CUMM (130-400); Red Blood Count 4.45 MC/CUMM (3.8-5.5); Red Cell Distribution Width 13.3 % (9.3-17.3); White Blood Count 11.9 T/CUMM (4-12)
[2018-02-13 06:27] LABS: Albumin 3.1 G/DL (3.4-5.0); Bilirubin,Total 0.4 MG/DL (0.2-1.0); Calcium 9.5 MG/DL (8.5-10.1); Osmolality,Calculated 273.8 MOS/KG (273-304); Potassium 4.5 MMOL/L (3.5-5.1); Total Protein 7.1 G/DL (6.4-8.3)
[2018-02-13 06:28] LABS: INR 0.9; PT Patient Result 9.7 SECS; Partial Thromboplastin Time 29.4 SECS (0-40)
[2018-02-13] MEDS ORDERED: ONDANSETRON 4 MG/2 ML VIAL IV PRN (08:53)
[2018-02-13] MEDS ORDERED: ACETAMINOPHEN 325 MG TABLET PO PRN (08:53)
[2018-02-13] MEDS ORDERED: PANTOPRAZOLE 40 MG TABLET PO SCH (09:00)
[2018-02-13] MEDS ORDERED: INFLUENZA VIRUS VACCINE 0.5 ML SYRINGE IM ONE (11:00)
[2018-02-13] MEDS ORDERED: NITROGLYCERIN SL 0.4 MG TABLET SL PRN (13:30)
[2018-02-13] MEDS ORDERED: ceFAZolin 1,000 MG VIAL IRRIG ONE (14:31)
[2018-02-13] MEDS ORDERED: ceFAZolin 1,000 MG in SYRINGE 1 EACH IV ONE (14:31)
[2018-02-13] MEDS: MAGNESIUM CHLORIDE 64 MG TABLET PO SCH ×2 (14:48→21:51)
[2018-02-13] MEDS: SELENIUM 200 MCG TABLET PO SCH ×2 (14:50→21:51)
[2018-02-13] MEDS: DOCUSATE SODIUM 100 MG CAPSULE PO SCH (18:11)
[2018-02-13] MEDS: PANTOPRAZOLE 40 MG TABLET PO SCH (18:11)
[2018-02-13] MEDS ORDERED: VILAZODONE HCL 20 MG PO SCH (21:00)
[2018-02-13] MEDS: PRAMIPEXOLE 0.25 MG TABLET PO SCH (21:50)
[2018-02-13] MEDS: ZALEPLON 5 MG CAPSULE PO SCH (21:51)
[2018-02-14 01:33] LABS: Basophils % 0.4 % (0.0-0.8); Eosinophils # 0.3 10*3/uL (0.0-0.87); Eosinophils % 2.6 % (0.00-10.9); Hematocrit 41.6 VOL% (42.0-52.0); Hemoglobin 13.5 GM/DL (14.0-18.0); Immature Granulocytes % 0.3 %; Immature Granulocytes Absolute 0.03 #; Lymphocytes # 2.3 10*3/uL (1.4-4.0); Lymphocytes % 20.1 % (21.2-54.2); Mean Corpuscular HGB Conc 32.5 GM/DL (32-36); Mean Corpuscular Hemoglobin 30 PG (27-34); Mean Corpuscular Volume 93.5 FL (87-102); Mean Platelet Volume 10.7 FL (9.6-12.0); Monocytes # 1.2 10*3/uL (0.11-0.8); Monocytes % 10.9 % (1.7-12.7); Neutrophils # 7.4 10*3/uL (1.4-7.4); Neutrophils % 65.7 % (38.7-73.9); Platelet Count 235 T/CUMM (130-400); Red Blood Count 4.45 MC/CUMM (3.8-5.5); Red Cell Distribution Width 13.3 % (9.3-17.3); White Blood Count 11.2 T/CUMM (4-12)
[2018-02-14 01:49] LABS: Osmolality,Calculated 275.8 MOS/KG (273-304); Potassium 4.2 MMOL/L (3.5-5.1)
[2018-02-14 02:00] LABS: Albumin 3.1 G/DL (3.4-5.0); Bilirubin,Total 0.4 MG/DL (0.2-1.0); Calcium 9.1 MG/DL (8.5-10.1); Osmolality,Calculated 276.7 MOS/KG (273-304); Potassium 4.2 MMOL/L (3.5-5.1); Thyroid Stimulating Hormone 6.86 uIU/ml (0.358-3.74); Total Protein 7.2 G/DL (6.4-8.3)
[2018-02-14 05:01] LABS: Amorphous Crystals,Urine Occasional /HPF (Few); Apearance,Urine CLEAR (Clear); Bacteria,Urine Occasional /HPF (Few); Bilirubin,Urine Negative (Negative); Blood, Urine Negative (Negative); Glucose,Urine (UA) Negative (Negative); Ketones,Urine Negative (Negative); Mucus,Urine Occasional /LPF (Occasional); Nitrite,Urine Negative (Negative); Protein,Urine Negative; RBC,Urine 6 /HPF (0-4); Urine Color Yellow (Yellow); Urine Urobilinogen < 2.0 EU/DL (0.2-1.0); WBC,Urine <1 /HPF (0-6)
[2018-02-14] MEDS ORDERED: LEVOTHYROXINE 75 MCG TABLET PO SCH (07:00)
[2018-02-14] MEDS ORDERED: ceFAZolin 1,000 MG VIAL IRRIG ONE (08:00)
[2018-02-14] MEDS ORDERED: ceFAZolin 1,000 MG in SYRINGE 1 EACH IV ONE (08:00)
[2018-02-14] MEDS: ASCORBIC ACID 500 MG TABLET PO SCH (08:24)
[2018-02-14] MEDS: SIMVASTATIN 10 MG TABLET PO SCH (08:24)
[2018-02-14] MEDS: ASPIRIN EC 81 MG TABLET PO SCH (08:24)
[2018-02-14] MEDS: MULTIVITAMIN (CENTRUM) TABLET PO SCH (08:24)
[2018-02-14] MEDS: FUROSEMIDE 40 MG TABLET PO SCH (08:24)
[2018-02-14] MEDS: MAGNESIUM CHLORIDE 64 MG TABLET PO SCH ×2 (08:24→21:31)
[2018-02-14] MEDS: SELENIUM 200 MCG TABLET PO SCH ×2 (08:24→21:31)
[2018-02-14] MEDS ORDERED: NON-FORMULARY MEDICATION (Flaxseed Oil [Flaxseed Oil] 1,000 MG) PO SCH (09:00)
[2018-02-14] MEDS ORDERED: ceFAZolin 1,000 MG VIAL ONE (09:49)
[2018-02-14] MEDS ORDERED: LIDOCAINE 1% 20 ML VIAL ONE (09:49)
[2018-02-14] MEDS ORDERED: MIDAZOLAM 2 MG/2 ML VIAL ONE ×2 (09:49→10:03)
[2018-02-14] MEDS ORDERED: fentaNYL 100 MCG/2 ML VIAL ONE ×2 (09:49→10:03)
[2018-02-14] MEDS ORDERED: HEPARIN/NACL 0.9% 2 UNITS/ML 500 ML IV ONE (09:50)
[2018-02-14] MEDS ORDERED: TISSUE ADHESIVE 1 EACH APPLICATOR TOP ONE (10:36)
[2018-02-14] MEDS: METOPROLOL TARTRATE 50 MG TABLET PO SCH ×2 (12:27→21:31)
[2018-02-14] MEDS: ceFAZolin 1,000 MG in SYRINGE 1 EACH IV SCH (17:30)
[2018-02-14] MEDS: PANTOPRAZOLE 40 MG TABLET PO SCH (18:31)
[2018-02-14] MEDS: DOCUSATE SODIUM 100 MG CAPSULE PO SCH (18:31)
[2018-02-14] MEDS: PRAMIPEXOLE 0.25 MG TABLET PO SCH (21:31)
[2018-02-14] MEDS: ZALEPLON 5 MG CAPSULE PO SCH (21:31)
[2018-02-14] MEDS: oxyCODONE/ACETAMINOPHEN 5-325 MG TABLET PO PRN (21:35)
[2018-02-15] MEDS: ceFAZolin 1,000 MG in SYRINGE 1 EACH IV SCH (00:30)
[2018-02-15 03:20] LABS: Basophils % 0.3 % (0.0-0.8); Eosinophils # 0.3 10*3/uL (0.0-0.87); Eosinophils % 2.8 % (0.00-10.9); Hematocrit 43.7 VOL% (42.0-52.0); Hemoglobin 13.9 GM/DL (14.0-18.0); Immature Granulocytes % 0.3 %; Immature Granulocytes Absolute 0.03 #; Lymphocytes # 2.1 10*3/uL (1.4-4.0); Lymphocytes % 17.4 % (21.2-54.2); Mean Corpuscular HGB Conc 31.8 GM/DL (32-36); Mean Corpuscular Hemoglobin 30 PG (27-34); Mean Corpuscular Volume 93.8 FL (87-102); Mean Platelet Volume 11.3 FL (9.6-12.0); Monocytes # 1.4 10*3/uL (0.11-0.8); Monocytes % 11.4 % (1.7-12.7); Neutrophils # 8.1 10*3/uL (1.4-7.4); Neutrophils % 67.8 % (38.7-73.9); Platelet Count 246 T/CUMM (130-400); Red Blood Count 4.66 MC/CUMM (3.8-5.5); Red Cell Distribution Width 13.4 % (9.3-17.3)
[2018-02-15 03:37] LABS: Calcium 9.4 MG/DL (8.5-10.1); Osmolality,Calculated 277.7 MOS/KG (273-304); Potassium 3.9 MMOL/L (3.5-5.1)
[2018-02-15 03:42] LABS: Troponin I 0.043 NG/ML (0.00-0.045)
[2018-02-15] MEDS: oxyCODONE/ACETAMINOPHEN 5-325 MG TABLET PO PRN (06:25)
[2018-02-15] MEDS ORDERED: LEVOTHYROXINE 100 MCG TABLET PO SCH (06:30)
[2018-02-15] MEDS: FUROSEMIDE 40 MG TABLET PO SCH (09:03)
[2018-02-15] MEDS: SELENIUM 200 MCG TABLET PO SCH (09:03)
[2018-02-15] MEDS: METOPROLOL TARTRATE 50 MG TABLET PO SCH (09:03)
[2018-02-15] MEDS: MAGNESIUM CHLORIDE 64 MG TABLET PO SCH (09:03)
[2018-02-15] MEDS: MULTIVITAMIN (CENTRUM) TABLET PO SCH (09:03)
[2018-02-15] MEDS: ASPIRIN EC 81 MG TABLET PO SCH (09:04)
[2018-02-15] MEDS: SIMVASTATIN 10 MG TABLET PO SCH (09:04)
[2018-02-15] MEDS: ASCORBIC ACID 500 MG TABLET PO SCH (09:04)
[2018-02-15] MEDS ORDERED: cephALEXin 500 MG CAPSULE PO SCH (09:30)
[2018-02-15] MEDS ORDERED: LOSARTAN 25 MG TABLET PO SCH (09:30)
[2018-02-15 13:47] VITALS: BP 130/78
[2018-02-15] MEDS ORDERED: INFLUENZA VIRUS VACCINE 0.5 ML SYRINGE IM ONE (14:00)
[2018-02-15] MEDS ORDERED: CLOPIDOGREL 75 MG TABLET PO SCH (19:00)
== END 2018-02-15 13:49 | disposition home or self-care (01) | DRG 244 ==
LOC: EDUNIT# → EDBD → N.ED 05:32 → N.EDINP 08:53 → SUATTDRO 08:53 → N.2W 10:03 → N.TELES 11:04 → N.ICU 02-14 01:04 → N.TELES 02-14 11:16
PROVIDERS: ADMIT Hospitalist; ATTEND Hospitalist

== ENCOUNTER 2018-03-08 09:01 | Inpatient (IN) ==
[2018-03-08 09:48] LABS: Basophils % 0.3 % (0.0-0.8); Eosinophils # 0.2 10*3/uL (0.0-0.87); Eosinophils % 2.1 % (0.00-10.9); Hematocrit 24.3 VOL% (42.0-52.0); Hemoglobin 7.8 GM/DL (14.0-18.0); Immature Granulocytes % 0.3 %; Immature Granulocytes Absolute 0.03 #; Lymphocytes # 2.5 10*3/uL (1.4-4.0); Lymphocytes % 21.2 % (21.2-54.2); Mean Corpuscular HGB Conc 32.1 GM/DL (32-36); Mean Corpuscular Hemoglobin 30 PG (27-34); Mean Corpuscular Volume 94.6 FL (87-102); Mean Platelet Volume 11.2 FL (9.6-12.0); Monocytes # 1.5 10*3/uL (0.11-0.8); Monocytes % 12.9 % (1.7-12.7); Neutrophils # 7.3 10*3/uL (1.4-7.4); Neutrophils % 63.2 % (38.7-73.9); Platelet Count 261 T/CUMM (130-400); Red Blood Count 2.57 MC/CUMM (3.8-5.5); Red Cell Distribution Width 13.9 % (9.3-17.3); White Blood Count 11.6 T/CUMM (4-12)
[2018-03-08 10:11] LABS: Alanine Aminotransferase 23 U/L (16-61); Albumin 2.8 G/DL (3.4-5.0); Alkaline Phosphatase 79 U/L (45-117); Aspartate Amino Transferase 19 U/L (0-37); Bilirubin,Total < 0.39 MG/DL (0.2-1.0); Blood Urea Nitrogen 18 MG/DL (7-18); Calcium 8.8 MG/DL (8.5-10.1); Glucose 96 MG/DL (74-106); Osmolality,Calculated 276.7 MOS/KG (273-304); Potassium 3.9 MMOL/L (3.5-5.1); Sodium 138 MMOL/L (136-145); Total Protein 6.6 G/DL (6.4-8.3)
[2018-03-08 10:18] LABS: INR 0.9; PT Patient Result 9.8 SECS
[2018-03-08] MEDS ORDERED: MORPHINE 4 MG/1 ML VIAL IV PRN (11:39)
[2018-03-08] MEDS ORDERED: guaiFENesin/DM ER 600-30 MG TABLET PO PRN (11:39)
[2018-03-08] MEDS ORDERED: ONDANSETRON 4 MG/2 ML VIAL IV PRN (11:39)
[2018-03-08] MEDS ORDERED: diphenhydrAMINE CAP 25 MG CAPSULE PO PRN (11:39)
[2018-03-08] MEDS ORDERED: NITROGLYCERIN SL 0.4 MG TABLET SL PRN (11:42)
[2018-03-08] MEDS ORDERED: SODIUM CHLORIDE 0.9% 1,000 ML IV PRN (11:44)
[2018-03-08] MEDS ORDERED: SIMVASTATIN 10 MG TABLET PO SCH (12:00)
[2018-03-08] MEDS ORDERED: FUROSEMIDE 40 MG/4 ML VIAL IV ONE (14:44)
[2018-03-08] MEDS: LOSARTAN 25 MG TABLET PO SCH ×2 (15:19→20:21)
[2018-03-08] MEDS: clonazePAM 0.5 MG TABLET PO SCH ×2 (15:19→20:20)
[2018-03-08] MEDS: PANTOPRAZOLE 40 MG TABLET PO SCH ×2 (15:19→20:21)
[2018-03-08] MEDS: METOPROLOL TARTRATE 50 MG TABLET PO SCH ×2 (15:19→20:20)
[2018-03-08] MEDS: MAGNESIUM CHLORIDE 64 MG TABLET PO SCH ×2 (15:20→20:21)
[2018-03-08] MEDS: MULTIVITAMIN (CENTRUM) TABLET PO SCH ×2 (15:42→15:52)
[2018-03-08] MEDS: FUROSEMIDE 40 MG TABLET PO SCH ×2 (15:43→15:53)
[2018-03-08] MEDS: ASCORBIC ACID 500 MG TABLET PO SCH ×2 (15:43→15:54)
[2018-03-08] MEDS: SODIUM CHLORIDE 0.9% 1,000 ML IV SCH (15:45)
[2018-03-08] MEDS: ACETAMINOPHEN 325 MG TABLET PO PRN ×2 (16:29→20:21)
[2018-03-08] MEDS: MELATONIN 3 MG TABLET PO PRN (20:20)
[2018-03-08] MEDS: ZALEPLON 5 MG CAPSULE PO SCH (20:20)
[2018-03-08] MEDS: DUTASTERIDE 0.5 MG CAPSULE PO SCH (20:20)
[2018-03-08] MEDS: PRAMIPEXOLE 0.25 MG TABLET PO SCH (20:21)
[2018-03-08] MEDS: DOCUSATE SODIUM 100 MG CAPSULE PO SCH (20:21)
[2018-03-08] MEDS: VILAZODONE HCL 20 MG PO SCH (20:22)
[2018-03-09 01:02] LABS: Basophils % 0.3 % (0.0-0.8); Eosinophils # 0.3 10*3/uL (0.0-0.87); Eosinophils % 3.4 % (0.00-10.9); Hemoglobin 8.7 GM/DL (14.0-18.0); Immature Granulocytes % 0.4 %; Immature Granulocytes Absolute 0.04 #; Lymphocytes # 2.2 10*3/uL (1.4-4.0); Lymphocytes % 23.3 % (21.2-54.2); Mean Corpuscular HGB Conc 32.2 GM/DL (32-36); Mean Corpuscular Hemoglobin 30 PG (27-34); Mean Corpuscular Volume 93.1 FL (87-102); Mean Platelet Volume 11.1 FL (9.6-12.0); Neutrophils # 5.7 10*3/uL (1.4-7.4); Neutrophils % 61.6 % (38.7-73.9); Platelet Count 242 T/CUMM (130-400); Red Cell Distribution Width 14.9 % (9.3-17.3); White Blood Count 9.3 T/CUMM (4-12)
[2018-03-09 01:03] LABS: Hematocrit 27.6 VOL% (42.0-52.0); Hemoglobin 8.7 GM/DL (14.0-18.0)
[2018-03-09 01:17] LABS: Calcium 8.5 MG/DL (8.5-10.1); Osmolality,Calculated 282.3 MOS/KG (273-304); Potassium 3.9 MMOL/L (3.5-5.1)
[2018-03-09] MEDS: SODIUM CHLORIDE 0.9% 1,000 ML IV SCH ×2 (01:20→15:42)
[2018-03-09] MEDS: LEVOTHYROXINE 75 MCG TABLET PO SCH (05:52)
[2018-03-09 08:27] LABS: PT Patient Result 10.7 SECS
[2018-03-09 09:36] LABS: Basophils % 0.3 % (0.0-0.8); Eosinophils # 0.2 10*3/uL (0.0-0.87); Eosinophils % 2.6 % (0.00-10.9); Hematocrit 26.1 VOL% (42.0-52.0); Hemoglobin 8.3 GM/DL (14.0-18.0); Immature Granulocytes % 0.3 %; Immature Granulocytes Absolute 0.03 #; Lymphocytes # 1.8 10*3/uL (1.4-4.0); Mean Corpuscular HGB Conc 31.8 GM/DL (32-36); Mean Corpuscular Hemoglobin 30 PG (27-34); Mean Corpuscular Volume 93.9 FL (87-102); Mean Platelet Volume 11.4 FL (9.6-12.0); Monocytes % 11.2 % (1.7-12.7); Neutrophils # 5.7 10*3/uL (1.4-7.4); Neutrophils % 65.6 % (38.7-73.9); Platelet Count 225 T/CUMM (130-400); Red Blood Count 2.78 MC/CUMM (3.8-5.5); Red Cell Distribution Width 14.9 % (9.3-17.3); White Blood Count 8.8 T/CUMM (4-12)
[2018-03-09] MEDS ORDERED: LIDOCAINE 100 MG/5 ML SYRINGE ONE (10:00)
[2018-03-09] MEDS ORDERED: PROPOFOL 200 MG/20 ML VIAL IV ONE (10:00)
[2018-03-09] MEDS: METOPROLOL TARTRATE 50 MG TABLET PO SCH ×2 (12:48→20:17)
[2018-03-09] MEDS: LOSARTAN 25 MG TABLET PO SCH ×2 (12:48→20:16)
[2018-03-09] MEDS: MULTIVITAMIN (CENTRUM) TABLET PO SCH (12:48)
[2018-03-09] MEDS: clonazePAM 0.5 MG TABLET PO SCH ×2 (12:48→20:16)
[2018-03-09] MEDS: FUROSEMIDE 40 MG TABLET PO SCH (12:48)
[2018-03-09] MEDS: ASCORBIC ACID 500 MG TABLET PO SCH (12:48)
[2018-03-09] MEDS: PANTOPRAZOLE 40 MG TABLET PO SCH ×2 (12:49→20:17)
[2018-03-09] MEDS: MAGNESIUM CHLORIDE 64 MG TABLET PO SCH ×2 (12:49→20:16)
[2018-03-09] MEDS: ACETAMINOPHEN 325 MG TABLET PO PRN ×2 (12:53→19:16)
[2018-03-09] MEDS: ZALEPLON 5 MG CAPSULE PO SCH (20:16)
[2018-03-09] MEDS: VILAZODONE HCL 20 MG PO SCH (20:16)
[2018-03-09] MEDS: PRAMIPEXOLE 0.25 MG TABLET PO SCH (20:16)
[2018-03-09] MEDS: DUTASTERIDE 0.5 MG CAPSULE PO SCH (20:17)
[2018-03-09] MEDS: DOCUSATE SODIUM 100 MG CAPSULE PO SCH (20:17)
[2018-03-09] MEDS: MELATONIN 3 MG TABLET PO PRN (20:17)
[2018-03-09] MEDS ORDERED: SIMVASTATIN 10 MG TABLET PO SCH (21:00)
[2018-03-10] MEDS: LEVOTHYROXINE 75 MCG TABLET PO SCH (06:32)
[2018-03-10] MEDS: ACETAMINOPHEN 325 MG TABLET PO PRN (07:34)
[2018-03-10 08:15] VITALS: BP 130/71
[2018-03-10] MEDS: PANTOPRAZOLE 40 MG TABLET PO SCH (08:36)
[2018-03-10] MEDS: FUROSEMIDE 40 MG TABLET PO SCH (08:36)
[2018-03-10] MEDS: METOPROLOL TARTRATE 50 MG TABLET PO SCH (08:36)
[2018-03-10] MEDS: ASCORBIC ACID 500 MG TABLET PO SCH (08:36)
[2018-03-10] MEDS: MAGNESIUM CHLORIDE 64 MG TABLET PO SCH (08:36)
[2018-03-10] MEDS: LOSARTAN 25 MG TABLET PO SCH (08:36)
[2018-03-10] MEDS: MULTIVITAMIN (CENTRUM) TABLET PO SCH (08:36)
[2018-03-10] MEDS: clonazePAM 0.5 MG TABLET PO SCH (08:36)
[2018-03-10] MEDS ORDERED: ASPIRIN CHEW 81 MG TABLET PO SCH (09:00)
[2018-03-10 09:54] LABS: Hematocrit 27.6 VOL% (42.0-52.0); Hemoglobin 8.6 GM/DL (14.0-18.0)
== END 2018-03-10 10:57 | disposition home or self-care (01) | DRG 813 ==
LOC: N.ED 09:01 → N.EDINP 11:39 → N.2W 12:15 → N.5E 14:38
PROVIDERS: ADMIT Internal Medicine; ATTEND Internal Medicine

== ENCOUNTER 2019-06-08 12:55 | Observation (INO) ==
[2019-06-08 13:37] LABS: Basophils % 0.2 % (0.0-0.8); Eosinophils # 0.1 10*3/uL (0.0-0.87); Eosinophils % 0.7 % (0.00-10.9); Hematocrit 41.5 VOL% (42.0-52.0); Hemoglobin 13.9 GM/DL (14.0-18.0); Immature Granulocytes % 0.5 %; Immature Granulocytes Absolute 0.06 #; Lymphocytes # 1.8 10*3/uL (1.4-4.0); Lymphocytes % 15.2 % (21.2-54.2); Mean Corpuscular HGB Conc 33.5 GM/DL (32-36); Mean Corpuscular Volume 92.8 FL (87-102); Monocytes % 10.1 % (1.7-12.7); Neutrophils % 73.3 % (38.7-73.9); Platelet Count 243 T/CUMM (130-400); Red Blood Count 4.47 MC/CUMM (3.8-5.5); Red Cell Distribution Width 12.7 % (9.3-17.3); White Blood Count 12.1 T/CUMM (4-12)
[2019-06-08 13:42] LABS: PT Patient Result 10.4 SECS (9.6-12.2)
[2019-06-08 13:50] LABS: Alanine Aminotransferase 23 U/L (16-61); Albumin 3.5 G/DL (3.4-5.0); Alkaline Phosphatase 61 U/L (45-117); Aspartate Amino Transferase 25 U/L (0-37); Blood Urea Nitrogen 17 MG/DL (7-18); Calcium 9.1 MG/DL (8.5-10.1); Estimated Glom Filtration Rate 112 ML/MIN; Glucose 104 MG/DL (74-106); Osmolality,Calculated 265.5 MOS/KG (273-304); Total Protein 7.5 G/DL (6.4-8.3); Troponin I 0.019 NG/ML (0.00-0.045)
[2019-06-08] MEDS ORDERED: MAGNESIUM SULF RIDER 2 GM in PREMIX 1 EACH IV PRN (15:32)
[2019-06-08] MEDS ORDERED: DEXTROSE 10% 25 GM/250 ML BAG IV PRN (15:32)
[2019-06-08] MEDS ORDERED: POTASSIUM CHLORIDE 20 MEQ TABLET PO PRN ×2 (15:32)
[2019-06-08] MEDS ORDERED: GLUCAGON 1 MG VIAL IM PRN (15:32)
[2019-06-08] MEDS ORDERED: NITROGLYCERIN SL 0.4 MG TABLET SL PRN (15:48)
[2019-06-08] MEDS ORDERED: ENOXAPARIN 40 MG/0.4 ML SYRINGE SUBCUT SCH (16:00)
[2019-06-08] MEDS ORDERED: ALBUTEROL/IPRATROPIUM 3 ML NEB RESP TX PRN (17:02)
[2019-06-08 18:30] LABS: Risk Ratio 5.39; VLDL CHOLESTEROL 43.4 MG/DL
[2019-06-08] MEDS: SELENIUM 200 MCG TABLET PO SCH (20:32)
[2019-06-08] MEDS: clonazePAM 0.5 MG TABLET PO SCH (20:35)
[2019-06-08] MEDS: LOSARTAN 25 MG TABLET PO SCH (20:36)
[2019-06-08] MEDS: BUDESONIDE/FORMOTEROL 160-4.5 INHALER 6 GM INH SCH (20:38)
[2019-06-08] MEDS: cilostazoL 50 MG TABLET PO SCH (20:40)
[2019-06-08] MEDS ORDERED: FINASTERIDE 5 MG TABLET PO SCH (21:00)
[2019-06-08] MEDS ORDERED: CITALOPRAM 20 MG TABLET PO SCH (21:00)
[2019-06-08] MEDS ORDERED: ACETAMINOPHEN 500 MG TABLET PO SCH (21:00)
[2019-06-08] MEDS ORDERED: METOPROLOL TARTRATE 25 MG TABLET PO SCH (21:00)
[2019-06-08] MEDS ORDERED: SIMVASTATIN 10 MG TABLET PO SCH (21:00)
[2019-06-08] MEDS ORDERED: diphenhydrAMINE CAP 25 MG CAPSULE PO SCH (21:30)
[2019-06-09 05:26] LABS: Basophils % 0.5 % (0.0-0.8); Eosinophils # 0.2 10*3/uL (0.0-0.87); Eosinophils % 2.6 % (0.00-10.9); Hematocrit 40.1 VOL% (42.0-52.0); Hemoglobin 13.1 GM/DL (14.0-18.0); Immature Granulocytes % 0.6 %; Immature Granulocytes Absolute 0.05 #; Lymphocytes # 2.4 10*3/uL (1.4-4.0); Lymphocytes % 27.9 % (21.2-54.2); Mean Corpuscular HGB Conc 32.7 GM/DL (32-36); Monocytes % 11.1 % (1.7-12.7); Neutrophils % 57.3 % (38.7-73.9); Platelet Count 214 T/CUMM (130-400); Red Blood Count 4.22 MC/CUMM (3.8-5.5); Red Cell Distribution Width 12.9 % (9.3-17.3); White Blood Count 8.8 T/CUMM (4-12)
[2019-06-09 05:43] LABS: Albumin 3.1 G/DL (3.4-5.0); Bilirubin,Total 1.1 MG/DL (0.2-1.0); Calcium 8.9 MG/DL (8.5-10.1); Total Protein 6.7 G/DL (6.4-8.3); Troponin I 0.029 NG/ML (0.00-0.045)
[2019-06-09] MEDS ORDERED: LEVOTHYROXINE 75 MCG TABLET PO SCH (07:00)
[2019-06-09 07:57] VITALS: BP 139/81
[2019-06-09] MEDS ORDERED: LEVOTHYROXINE 88 MCG TABLET PO SCH (08:22)
[2019-06-09] MEDS ORDERED: FUROSEMIDE 40 MG TABLET PO SCH (09:00)
[2019-06-09] MEDS ORDERED: PANTOPRAZOLE 40 MG TABLET PO SCH (09:00)
[2019-06-09] MEDS ORDERED: METOPROLOL TARTRATE 25 MG TABLET PO SCH (09:00)
[2019-06-09] MEDS ORDERED: ASPIRIN EC 81 MG TABLET PO SCH (09:00)
[2019-06-09] MEDS ORDERED: CLOPIDOGREL 75 MG TABLET PO SCH (09:00)
[2019-06-09] MEDS: BUDESONIDE/FORMOTEROL 160-4.5 INHALER 6 GM INH SCH (10:36)
[2019-06-09] MEDS: LOSARTAN 25 MG TABLET PO SCH (10:37)
[2019-06-09] MEDS: clonazePAM 0.5 MG TABLET PO SCH (10:38)
[2019-06-09] MEDS: SELENIUM 200 MCG TABLET PO SCH (10:39)
[2019-06-09] MEDS: cilostazoL 50 MG TABLET PO SCH (10:41)
[2019-06-09] MEDS ORDERED: SIMVASTATIN 40 MG TABLET PO SCH (21:00)
== END 2019-06-09 11:40 | disposition home or self-care (01) ==
LOC: EDBD → EDUNIT# → N.ED 12:55 → N.EDINP 12:55 → N.2W 18:00
PROVIDERS: ADMIT Family Medicine; ATTEND Family Medicine

== ENCOUNTER 2019-09-10 06:26 | Inpatient (IN) ==
[2019-09-06 12:46] LABS: Basophils % 0.3 % (0.0-0.8); Eosinophils # 0.2 10*3/uL (0.0-0.87); Eosinophils % 1.8 % (0.00-10.9); Hematocrit 44.1 VOL% (42.0-52.0); Hemoglobin 14.3 GM/DL (14.0-18.0); Immature Granulocytes % 0.3 %; Immature Granulocytes Absolute 0.03 #; Lymphocytes # 3.3 10*3/uL (1.4-4.0); Mean Corpuscular HGB Conc 32.4 GM/DL (32-36); Mean Corpuscular Volume 95.9 FL (87-102); Mean Platelet Volume 10.7 FL (9.6-12.0); Monocytes % 10.1 % (1.7-12.7); Neutrophils % 58.5 % (38.7-73.9); Platelet Count 227 T/CUMM (130-400); White Blood Count 11.5 T/CUMM (4-12)
[2019-09-06 13:28] LABS: Alanine Aminotransferase 28 U/L (16-61); Albumin 3.6 G/DL (3.4-5.0); Alkaline Phosphatase 75 U/L (45-117); Aspartate Amino Transferase 25 U/L (0-37); Bilirubin,Total < 0.39 MG/DL (0.2-1.0); Blood Urea Nitrogen 13 MG/DL (7-18); Calcium 9.4 MG/DL (8.5-10.1); Estimated Glom Filtration Rate 111 ML/MIN; Glucose 91 MG/DL (74-106); Total Protein 7.4 G/DL (6.4-8.3)
[~2019-09-10 06:26] MED LIST: ALVIMOPAN 12 MG CAPSULE ONE; ERTAPENEM 1,000 MG VIAL ONE
[2019-09-10] MEDS ORDERED: ALVIMOPAN 12 MG CAPSULE PO ONE (07:00)
[2019-09-10] MEDS ORDERED: ERTAPENEM 1,000 MG in SODIUM CHLORIDE 0.9% 100 ML IV ONE (07:00)
[2019-09-10] MEDS ORDERED: ROPIVACAINE 0.5% 30 ML VIAL ONE (07:23)
[2019-09-10] MEDS ORDERED: FAMOTIDINE 20 MG TABLET ONE (07:23)
[2019-09-10] MEDS ORDERED: MIDAZOLAM 2 MG/2 ML VIAL ONE (07:24)
[2019-09-10] MEDS ORDERED: LIDOCAINE 1% 5 ML VIAL ONE (07:24)
[2019-09-10] MEDS ORDERED: DEXAMETHASONE 4 MG/1 ML VIAL ONE (07:24)
[2019-09-10] MEDS ORDERED: FAMOTIDINE 20 MG TABLET PO STA (07:47)
[2019-09-10] MEDS ORDERED: LACTATED RINGERS 1,000 ML IV SCH (08:00)
[2019-09-10] MEDS ORDERED: HEPARIN/NACL 0.9% 2 UNITS/ML 500 ML IV ONE (08:17)
[2019-09-10] MEDS ORDERED: INDOCYANINE GREEN 25 MG VIAL IV ONE (08:55)
[2019-09-10] MEDS ORDERED: TISSUE ADHESIVE 1 EACH APPLICATOR TOP ONE (08:55)
[2019-09-10] MEDS ORDERED: ONDANSETRON 4 MG/2 ML VIAL IV PRN ×2 (11:11→11:20)
[2019-09-10] MEDS ORDERED: NITROGLYCERIN SL 0.4 MG TABLET SL PRN (11:16)
[2019-09-10] MEDS ORDERED: LABETALOL 20 MG/4 ML SYRINGE IV ONE (11:20)
[2019-09-10 11:25] LABS: Apearance,Urine Slightly Hazy (Clear); Bilirubin,Urine Negative (Negative); Blood, Urine Negative (Negative); Glucose,Urine (UA) Negative (Negative); Ketones,Urine Negative (Negative); Mucus,Urine Many /LPF (Occasional); Nitrite,Urine Negative (Negative); Protein,Urine Negative; RBC,Urine 9 /HPF (0-4); Squamous Epithelial Cell,Urine Occasional /HPF (0-10); Urine Color Amber (Yellow); Urine Specific Gravity 1.029 (1.001-1.035); Urine Urobilinogen < 2.0 EU/DL (0.2-1.0); WBC,Urine 2 /HPF (0-6)
[2019-09-10] MEDS ORDERED: LIDOCAINE 2% 5 ML VIAL ONE (11:28)
[2019-09-10] MEDS ORDERED: ONDANSETRON 4 MG/2 ML VIAL ONE ×2 (11:28→11:34)
[2019-09-10] MEDS ORDERED: fentaNYL 100 MCG/2 ML VIAL ONE (11:28)
[2019-09-10] MEDS ORDERED: propofoL 200 MG/20 ML VIAL IV ONE (11:28)
[2019-09-10] MEDS ORDERED: SEVOFLURANE 1 UNIT/15 MINUTE INH ONE (11:28)
[2019-09-10] MEDS ORDERED: LACTATED RINGERS 1,000 ML IV ONE (11:29)
[2019-09-10] MEDS ORDERED: ROCURONIUM 100 MG/10 ML VIAL IV ONE (11:29)
[2019-09-10] MEDS ORDERED: PHENYLEPHRINE 1 MG/10 ML SYRINGE IV ONE (11:29)
[2019-09-10] MEDS ORDERED: ETOMIDATE 40 MG/20 ML VIAL IV ONE (11:29)
[2019-09-10] MEDS ORDERED: HYDROmorphone 2 MG/1 ML VIAL ONE (11:34)
[2019-09-10] MEDS: HYDROmorphone 2 MG/1 ML VIAL IV PRN ×2 (11:35→12:25)
[2019-09-10] MEDS: DEXTROSE 5% LACTATED RINGERS 1,000 ML IV SCH ×2 (13:53→22:15)
[2019-09-10] MEDS: cefOXitin 2,000 MG in SYRINGE 1 EACH IV SCH ×2 (14:42→21:02)
[2019-09-10] MEDS: MORPHINE 4 MG/1 ML VIAL IV PRN (14:50)
[2019-09-10] MEDS ORDERED: cefOXitin 2,000 MG in SYRINGE 1 EACH IV SCH (15:00)
[2019-09-10] MEDS: clonazePAM 0.5 MG TABLET PO SCH (21:02)
[2019-09-10] MEDS: ALVIMOPAN 12 MG CAPSULE PO SCH (21:02)
[2019-09-10] MEDS: FINASTERIDE 5 MG TABLET PO SCH (21:02)
[2019-09-10] MEDS: LOSARTAN 25 MG TABLET PO SCH (21:02)
[2019-09-10] MEDS: METOPROLOL TARTRATE 25 MG TABLET PO SCH (21:03)
[2019-09-11] MEDS: cefOXitin 2,000 MG in SYRINGE 1 EACH IV SCH (02:31)
[2019-09-11] MEDS: MORPHINE 4 MG/1 ML VIAL IV PRN (06:13)
[2019-09-11] MEDS: LEVOTHYROXINE 88 MCG TABLET PO SCH (06:13)
[2019-09-11 07:50] LABS: Basophils % 0.1 % (0.0-0.8); Eosinophils % 0.1 % (0.00-10.9); Hematocrit 39.5 VOL% (42.0-52.0); Hemoglobin 12.5 GM/DL (14.0-18.0); Immature Granulocytes % 0.6 %; Immature Granulocytes Absolute 0.08 #; Lymphocytes # 2.3 10*3/uL (1.4-4.0); Lymphocytes % 16.8 % (21.2-54.2); Mean Corpuscular HGB Conc 31.6 GM/DL (32-36); Mean Platelet Volume 11.7 FL (9.6-12.0); Monocytes % 12.8 % (1.7-12.7); Neutrophils % 69.6 % (38.7-73.9); Platelet Count 200 T/CUMM (130-400); Red Blood Count 3.99 MC/CUMM (3.8-5.5); Red Cell Distribution Width 13.3 % (9.3-17.3); White Blood Count 13.8 T/CUMM (4-12)
[2019-09-11 08:14] LABS: Calcium 8.8 MG/DL (8.5-10.1); Osmolality,Calculated 273.8 MOS/KG (273-304)
[2019-09-11] MEDS: FUROSEMIDE 40 MG TABLET PO SCH (08:55)
[2019-09-11] MEDS: PANTOPRAZOLE 40 MG TABLET PO SCH (08:55)
[2019-09-11] MEDS: clonazePAM 0.5 MG TABLET PO SCH ×2 (08:55→20:34)
[2019-09-11] MEDS: ALVIMOPAN 12 MG CAPSULE PO SCH ×2 (08:56→20:34)
[2019-09-11] MEDS: LOSARTAN 25 MG TABLET PO SCH ×2 (08:56→20:35)
[2019-09-11] MEDS: ASPIRIN EC 81 MG TABLET PO SCH (08:56)
[2019-09-11] MEDS: METOPROLOL TARTRATE 25 MG TABLET PO SCH ×2 (08:56→20:35)
[2019-09-11] MEDS ORDERED: FUROSEMIDE 40 MG/4 ML VIAL IV ONE (17:49)
[2019-09-11] MEDS: DEXTROSE 5% LACTATED RINGERS 1,000 ML IV SCH (18:05)
[2019-09-11] MEDS: FINASTERIDE 5 MG TABLET PO SCH (20:35)
[2019-09-12] MEDS: LEVOTHYROXINE 88 MCG TABLET PO SCH (06:17)
[2019-09-12] MEDS: clonazePAM 0.5 MG TABLET PO SCH ×2 (09:48→21:07)
[2019-09-12] MEDS: PANTOPRAZOLE 40 MG TABLET PO SCH (09:49)
[2019-09-12] MEDS: ALVIMOPAN 12 MG CAPSULE PO SCH ×2 (09:49→21:09)
[2019-09-12] MEDS: METOPROLOL TARTRATE 25 MG TABLET PO SCH ×2 (09:49→21:09)
[2019-09-12] MEDS: FUROSEMIDE 40 MG TABLET PO SCH (09:50)
[2019-09-12] MEDS: LOSARTAN 25 MG TABLET PO SCH ×2 (09:50→21:07)
[2019-09-12] MEDS: ASPIRIN EC 81 MG TABLET PO SCH (09:51)
[2019-09-12 10:08] LABS: Basophils % 0.1 % (0.0-0.8); Eosinophils # 0.1 10*3/uL (0.0-0.87); Eosinophils % 0.6 % (0.00-10.9); Hematocrit 40.1 VOL% (42.0-52.0); Hemoglobin 13.2 GM/DL (14.0-18.0); Immature Granulocytes % 0.3 %; Immature Granulocytes Absolute 0.04 #; Lymphocytes # 2.3 10*3/uL (1.4-4.0); Lymphocytes % 16.8 % (21.2-54.2); Mean Corpuscular HGB Conc 32.9 GM/DL (32-36); Mean Corpuscular Volume 96.2 FL (87-102); Mean Platelet Volume 10.9 FL (9.6-12.0); Monocytes % 8.4 % (1.7-12.7); Neutrophils % 73.8 % (38.7-73.9); Platelet Count 191 T/CUMM (130-400); Red Blood Count 4.17 MC/CUMM (3.8-5.5); Red Cell Distribution Width 13.2 % (9.3-17.3); White Blood Count 13.4 T/CUMM (4-12)
[2019-09-12] MEDS: FINASTERIDE 5 MG TABLET PO SCH (21:09)
[2019-09-13] MEDS: LEVOTHYROXINE 88 MCG TABLET PO SCH (06:03)
[2019-09-13] MEDS: LOSARTAN 25 MG TABLET PO SCH (08:55)
[2019-09-13] MEDS: clonazePAM 0.5 MG TABLET PO SCH (08:55)
[2019-09-13] MEDS: FUROSEMIDE 40 MG TABLET PO SCH (08:56)
[2019-09-13] MEDS: ALVIMOPAN 12 MG CAPSULE PO SCH (08:57)
[2019-09-13] MEDS: PANTOPRAZOLE 40 MG TABLET PO SCH (08:57)
[2019-09-13] MEDS: ASPIRIN EC 81 MG TABLET PO SCH (08:57)
[2019-09-13] MEDS: METOPROLOL TARTRATE 25 MG TABLET PO SCH (08:57)
[2019-09-13 09:25] LABS: Basophils % 0.3 % (0.0-0.8); Eosinophils # 0.2 10*3/uL (0.0-0.87); Eosinophils % 1.7 % (0.00-10.9); Hematocrit 44.7 VOL% (42.0-52.0); Hemoglobin 14.1 GM/DL (14.0-18.0); Immature Granulocytes % 0.6 %; Immature Granulocytes Absolute 0.08 #; Lymphocytes # 2.9 10*3/uL (1.4-4.0); Lymphocytes % 20.8 % (21.2-54.2); Mean Corpuscular HGB Conc 31.5 GM/DL (32-36); Mean Corpuscular Volume 98.2 FL (87-102); Mean Platelet Volume 11.4 FL (9.6-12.0); Monocytes % 9.3 % (1.7-12.7); Neutrophils % 67.3 % (38.7-73.9); Platelet Count 218 T/CUMM (130-400); Red Blood Count 4.55 MC/CUMM (3.8-5.5); White Blood Count 13.8 T/CUMM (4-12)
[2019-09-13] MEDS ORDERED: FUROSEMIDE 40 MG/4 ML VIAL IV ONE (09:39)
[2019-09-13 11:53] VITALS: BP 142/79
== END 2019-09-13 12:38 | disposition home health service (06) | DRG 329 ==
LOC: N.OR 06:26 → N.SDSINP 06:28 → N.TELEN 13:02
PROVIDERS: ADMIT Surgery; ATTEND Surgery